=== PATIENT | male | born 1990 | race Caucasian/White ===

== ENCOUNTER 2021-05-05 15:26 | Inpatient (IN) | payer SELFPAY ==
--- OUTSIDE RECORDS SUMMARY | 2021-05-05 15:29 | XMS REPORT | Continuity of Care Document ---
:1990 Author Organization [facility] t Address [address] [place] [address] Care Team Providers Name Role Phone Mariah TORRES Primary Care Physician Unavailable Mariah TORRES Attending Clinician Unavailable TERRIE Attending Clinician Unavailable MD Norma FALCON Attending Clinician Unavailable ELADIA Attending Clinician Unavailable Mary Alice WYNNE Attending Clinician Unavailable Hui AGUIRRE Attending Clinician Unavailable Omid ORTEZ Attending Clinician Unavailable LOGAN Attending Clinician Unavailable Mary ASHTON Attending Clinician Unavailable WERO Attending Clinician Unavailable GIANCARLO Attending Clinician Unavailable AMADEO Attending Clinician Unavailable FORREST CUMMINS Attending Clinician Unavailable ALONSO Attending Clinician Unavailable Oswaldo DISLA Attending Clinician Unavailable SERGIO Attending Clinician Unavailable Mariah COBB Attending Clinician Unavailable Mary MCDANIEL Attending Clinician Unavailable LILLI Attending Clinician Unavailable OBINNA Attending Clinician Unavailable Norma ACHARYA Attending Clinician Unavailable JANETH CERNA Attending Clinician Unavailable EDISON Attending Clinician Unavailable SARA Attending Clinician Unavailable KIMMY Attending Clinician Unavailable DR VIJAY Attending Clinician Unavailable TERRIE Admitting Clinician Unavailable MD Norma FALCON Admitting Clinician Unavailable ZULY Admitting Clinician Unavailable DR VIJAY Admitting Clinician Unavailable Payers Payer Name Policy Type Policy Number Effective Date Expiration Date S ource Problems Condition Condition Condition Status Onset Resolution Last Treating Co mments Source Name Details Category Date Date Treatment Clinician Date Alcohol Alcohol Problem Active Univers use use [id number] ity of disorder disorder [place] [facility] Anxiety Anxiety Problem Active Univers and and [id number] [place] of [place] [facility] Allergies, Adverse Reactions, Alerts This patient has no known allergies or adverse reactions. Medications Ordered Filled Start Stop Current Ordering Indication Dosage Frequency Signature Comments Components Source Medication Medication Date Date Medication? Clinician (SIG) Name Name Gabapentin Gabapentin 2018-0 Yes SHAOJIE Q0.25D Take one [facility] 400 MG Oral 400 MG Oral 5-07 ONEAL M.D. capsule by ity of Capsule Capsule 08:58: mouth 4 [place] 26 [place] day ans Citalopram Citalopram Yes SHAOJIE Take 1 tab [facility] Hydrobromid Hydrobromid 2-15 ONEAL M.D. daily. ity of e 20 MG e 20 MG 00:00: [place] Oral Tablet Oral Tablet 00 P hysici ans TraZODone TraZODone Yes SHAOJIE TAKE 1/2 [facility] HCl - 150 HCl - 150 2-15 ONEAL M.D. TO 1 i ty of MG Oral MG Oral 00:00[place] Tablet 00 BEDTIME Physici PRN for ans insomnia Zolpidem Zolpidem Yes SHAOJIE TAKE 1/2 [facility] Tartrate 10 Tartrate 10 2-15 ONEAL M.D. OR 1 ity of MG Oral MG Oral 00:00[place] Table[place] Tablet 00 MOUTH Physici EVERY DAY ans AT BEDTIME Vital Signs Vital Name Observation Time Observation Value Comments Source Temperature 2017-07-07 98.4 [degF] Method: Oral [facility] 13:33:00 [place] [facility] Heart Rate 2017-07-07 93 /min Location: L [facility] :33:00 Brachial [place] [facility] Artery; Respiration Rate 2017-07-07 18 /min Quality: Normal Universi ty of 13:33:00 [place] [facility] BP Systolic 2017-07-07 144 mm[Hg] Location: [facility] :33:00 Position: [place] [facility] Sitting BP Diastolic 2017-07-07 92 mm[Hg] Location: [facility] 13:33:00 Position: [place] [facility] Sitting Height 2017-07-07 74 [in_us] [facility] 13:33:00 [place] [facility] Weight 2017-07-07 232 [lb_av] [facility] 13:33:00 [place] [facility] Body Mass Index 2017-07-07 29.79 kg/m2 University o f Calculated 13:33:00 [place] [facility] Procedures Procedure Date / Time Performed Performing Clinician Sour e [H] Drug Screen Urine 2017-07-07 00:00:00 [facility] (7 Drugs) Physicians History of no history [facility] of surgery Physicians Encounters Start End Encounter Admission Attending Care Care Encounter Source Date/Time Date/Time Type Type Clinicians Facility Department ID 2021-04-10 2021-04-10 Outpatient [facility] [id number] [place] 00:00:00 00:00:[address] 2021-03-31 2021-03-31 Outpatient BRIAN, [facility] [id number] [place] 00:00:00 00:00:00 [facility] 2021-03-23 2021-03-27 Inpatient TERRIE, [facility] [id number] [place] 00:00:00 00:00:00 TICO [address] 2021-01-24 2021-01-28 Inpatient ELADIA, [facility] [id number] [place] 18:12:49 13:50:00 [facility] 2020-12-15 2020-12-15 [facility] [id number] [place] 08:12:19 23:59:00 [facility] 2020-10-15 2020-10-15 Outpatient RICCI, [facility] [id number] [place] 00:00:00 [facility]:00:00 [facility] 2020-10-14 2020-10-14 Outpatient TIMOTHY, [facility] [id number] [place] 00:00:00 00:00:00 [facility] 2020-10-13 2020-10-13 Outpatient NEELIMA [facility] [id number] [facility] 13:41:18 14:49:53 ADONICA 2020-10-13 2020-10-13 Outpatient LOGAN [facility] [id number] [facility] 14:22:16 14:22:29 SCRALET 2020-10-03 2020-10-03 Emergency DAISHA, [facility] [id number] [place] 11:27:00 15:44:00 [facility] 2020-09-17 2020-09-18 Emergency WERO, [facility] [id number] [place] 22:15:00 04:15:00 [facility] 2020-09-17 2020-09-17 Outpatient SULY [facility] [id number] [place] 00:00:00 00:00:00 CUONG [facility] 2020-09-15 2020-09-15 [facility] [id number] [place] 00:00:00 00:00:00 [facility] 2020-09-09 2020-09-09 Emergency CLAYTON [facility] [id number] [place] 00:47:00 03:26:[address] [facility] 2020-09-01 2020-09-05 Outpatient JESSICATEO, [facility] [id number] [place] 22:15:00 15:28:00 [facility] 2020-09-04 2020-09-04 Outpatient ALALAYUMIKO, [facility] [id number] [place] 00:00:00 00:00:00 [facility] 2020-09-02 2020-09-02 Outpatient JAWAHIR, [facility] [id number] [place] 17:42:36 17:42:36 [facility] 2020-09-01 2020-09-01 Emergency [facility] [id number] [place] 15:33:08 15:33:08 [facility] 2020-08-27 2020-08-29 Outpatient [place] [id number] [place] 18:01:00 16:36:00 [facility] 2020-08-28 2020-08-28 Outpatient [place] [id number] [place] 03:30:57 03:30:57 [facility] 2020-08-28 2020-08-28 [facility] [id number] [place] 00:00:00 00:00:00 [facility] 2020-08-27 2020-08-27 Outpatient JORDYN, [facility] [id number] [place] 21:00:32 21:00:32 [facility] 2020-08-27 2020-08-27 [facility] [id number] [place] 19:53:25 19:53:25 [facility] 2020-08-27 2020-08-27 Outpatient LILLI, [facility] [id number] [place] 11:41:14 12:38:45 BRITTANI Tony 2020-08-25 2020-08-25 [facility] [id number] [place] 00:00:00 00:00:00 [facility] 2020-08-04 2020-08-04 Outpatient OBINNA, [facility] [id number] [place] 00:00:00 00:00:00 REESE [facility] 2020-07-31 2020-07-31 Outpatient AMADEO, [facility] [id number] [place] 00:00:00 00:00:00 [facility] 2020-07-22 2020-07-22 Outpatient YEBOAH, [facility] [id number] [place] 00:00:00 00:00:00 REESE [facility] 2020-07-21 2020-07-21 Outpatient YEBOAH, [facility] [id number] [place] 14:52:57 15:38:20 REESE [facility] 2020-07-21 2020-07-21 Outpatient YEBOAH, [facility] [id number] [place] 14:28:39 14:28:39 REESE [facility] 2020-07-01 2020-07-01 Outpatient MARCK, [facility] [id number] [place] 00:00:00 [facility]00[facility] 2019-11-30 2019-12-01 Emergency [facility] [id number] [place] 19:39:00 08:20:00 , ALICIA chery [facility] 2019-11-22 2019-11-22 Emergency E [facility] [id number] [place] 20:35:00 23:39:00 , ALICIA [facility]y [facility] 2019-11-17 2019-11-18 Emergency E EDISON, [facility] [id number] [place] 14:29:00 17:03:00 ZOYAMERErrol [facility]ined[facility] 2019-10-29 2019-10-31 Inpatient E SARA, [facility] [id number] [place] 01:45:00 14:40:00 ANTONIA [facility] 2017-08-11 2017-08-11 LORENZA Boles [id number] [facility] 12:30:00 12:30:00 t; MILAN ONEAL ity o f SHAOJIE, M.D. [place] [facility] 2017-07-07 2017-07-07 LORENZA Boles [id number] [facility] 13:00:00 13:00:00 t; MILAN ONEAL ity o f SHAOJIE, M.D. [place] [facility] 2017-05-13 2017-05-13 LORENZA Boles [id number] [facility] 13:00:00 13:00:00 t; MILAN ONEAL ity o f SHAOJIE, M.D. [place] [facility] 2017-04-28 2017-05-01 Inpatient [facility] [id number] [facility] [place] 15:58:00 16:15:00 [facility] Results Test Description Test Time Test Comments Results Result Comments Source SARS-CoV-2 (COVID-19) RNA [Presence] in Respiratory sp ecimen by 2021-03-23 18:56:16 GEOVANNI with probe detection Test Item Value Reference Range Interpretation Comme nts SARS-CoV-2 (COVID-19) RNA [Presence] in Respiratory Not detected No t-Detected specimen by GEOVANNI with probe detection (test code = 08950-7) Whether patient is employed in a healthcare setting (test code = 37378-1) Whether the patient has symptoms related to condition of interest (test code = 87544-4) Patient was hospitalized because of this condition (test code = 36087-3) Whether the patient was admitted to intensive care unit (ICU) for condition of interest (test code = 75310-6) Whether patient resides in a congregate care setting (test code = 13629-9) [QLH] CBC (INCLUDES DIFF/PLT)2017-07-07 14:00:01 Test Item Value Reference Range Interpretation Comments WBC (test code = WBC) 8.8 {K/CMM} 3.7-10.4 RBC (test code = RBC) 5.26 {M/CMM} 4.70-6.10 Hgb (test code = 94428-0) 14.6 g/dl 14.0-18.0 Hct (test code = 4544-3) 44.3 % 42.0-54.0 MCV (test code = MCV) 84.2 fL 80.0-94.0 MCH (test code = MCH) 27.7 pg 27.0-31.0 MCHC (test code = MCHC) 32.9 g/dl 32.0-36.0 RDW (test code = RDW) 14.4 % 11.5-14.5 Platelet (test code = 777-3) 288 {K/CMM} 133-450 Mean Platelet Volume (test code 9.3 fL 7.4-10.4 = Mean Platelet Volume) [facility]] [id number] 14:00:01 Test Item Value Reference Range Interpretation Comments Segmented Neutrophils (test code 49.9 % 45.0-75.0 = 52769-8) Monocytes # (test code = 44052-0) 0.8 {K/CMM} 0.0-0.8 Lymphocytes (test code = 38.4 % 20.0-40.0 Lymphocytes) Eosinophils # (test code = 0.2 {K/CMM} 0.0-0.5 77932-0) Basophils # (test code = 23665-2) 0.1 {K/CMM} 0.0-0.2 Segs-Bands # (test code = 4.4 {K/CMM} 1.5-8.1 32168-1) Lymphocytes # (test code = 3.4 {K/CMM} 1.0-5.5 38973-9) [facility]] CMP [id number] 14:00:01 Test Item Value Reference Range Interpretation Comments Sodium Level 140 {mEq/l} 135-145 (test code = Sodium Level) Potassium Level 4.4 {mEq/l} 3.5-5.1 (test code = Potassium Level) Chloride Level 108 {mEq/l} 95-109 (test code = Chloride Level) Carbon Dioxide 22 {mEq/l} 24-32 (test code = Carbon Dioxide) AGAP (test code = 14.4 {mEq/l} 10.0-20.0 AGAP) Glucose Lvl (test 79 mg/dl 70-99 Adult refe rence range code = Glucose values reflec t the Lvl) clinical guidel inesof the Citizen Of [place] Diabet es Association. Creatinine Lvl 1.00 mg/dl 0.50-1.40 (test code = Creatinine Lvl) Blood Urea 15 mg/dl 7-22 Nitrogen (test code = Blood Urea Nitrogen) BUN/Creatinine 15 6-25 Ratio (test code = BUN/Creatinine Ratio) Total Protein; 8.5 g/dl 6.4-8.4 Above High Threshold (test code = 90511-2) Albumin Lvl (test 4.2 g/dl 3.5-5.0 code = 1751-7) Globulin (test 4.3 g/dl 2.7-4.2 code = Globulin) A/G Ratio (test 1.0 0.7-1.6 code = A/G Ratio) Calcium Level 9.2 mg/dl 8.5-10.5 Total (test code = Calcium Level Total) ALT (test code = 37 u/l 0-65 1742-6) AST (test code = 26 u/l 0-37 1916-6) Alk Phos (test 86 u/l 39-136 code = 1783-0) Bili Total (test 0.3 mg/dl 0.2-1.3 code = 69647-2) eGFR (test code = 102 The eGFR i s calculated eGFR) {ML/MIN/1.7} using the CKD-E PI formula. In mos t young, healthyindividu als the eGFR will be >9 0 mL/min/1.73m2. The eGFR declines with a ge. AneGFR of 60-89 may be normal in some population s, particularly th e elderly, forwhom the CKD -EPI formula has not been extensively [place] idated. Use of the eGFR isnot recommended in the following populations:Ind ividuals with unstable c reatinine concentrations, including patient s and those with seri ous co-morbid conditions.Orin ents with extremes in mus ariel mass or diet.The leonardo a above are obtained fr om the National Kidney Disease Education Progr am(NKDEP) which additiona lly recommends that when the eGFR is used in patientswith ex tremes of body mass index for purposes of ameena g dosing, the eGFR should be multiplied by t he estimated BMI. [facility]] TSH, 3RD GENERATION W/REFLEX TO FT4 2017-07-07 14:00:01 Test Item Value Reference Range Interpretation Comments TSH (test code = 24013-8) 1.630 {uIU/ml} 0.360-3.740 [facility][H] Drug Screen Urine (7 Drugs)2017-07-07 14:00:01 Test Item Value Reference Range Interpretation Comments U Amph Scr (test code = Negative Negative U Amph Scr) Urine Barbiturate Negative Negative Screen (test code = Urine Barbiturate Screen) Urine Benzodiazepine Negative Negative Screen (test code = Urine Benzodiazepine Screen) Urine Cannabinoid Negative Negative Screen (test code = Urine Cannabinoid Screen) Urine Cocaine Screen Negative Negative (test code = Urine Cocaine Screen) Urine Opiate Screen Negative Negative (test code = Urine Opiate Screen) Urine Phencyclidine Negative Negative Screen (test code = Urine Phencyclidine Screen) Urine Drug Screen Note See Note Drugs reported as (test code = Urine Drug posi tive have not been Screen Note) confirmed by a secondmethod an d should be used for medical purpose s only. To orderconfirm ation, contact laboratory.no te: Below are cut-o ff concentrations for all urine drugs ofa camila performed in e laboratory. Trip e drugs listed in the t ablemay not be included in this panel.Desc ription C ut-off concentration-- ------- ------- ----Amp hetamine 1000 ng/mLBarbiturat es 200 ng/mLBenzodiaze pines 200 ng/mLCocaine metabolites 300 ng/mLOpiate s 300 ng/mLPhencyclid ine 25 ng/mLPropoxyphe ne 300 ng/mLMarijuana metabolites 50 ng/mLMethado ne 300 ng/mLUrine alco hol 20 mg/dL [facility]iciansSIC METABOLIC [id number] 05:46:00 Test Item Value Reference Range Interpretation Comments GLUCOSE (test code = 06D) 73 mg/dL 75-100 L SODIUM (test code = 01A) 142 mmol/L 136-145 POTASSIUM (test code = 01B) 3.7 mmol/L 3.6-5.1 CHLORIDE (test code = 04A) 108 mmol/L 98-107 H CO2 (test code = 02A) 28 mmol/L 22-32 ANION GAP (test code = ANG) 9.7 mmol/L BUN (test code = 05D) 8 mg/dL 7-18 CREATININE (test code = 03E) 1.0 mg/dL 0.7-1.3 BUN/CREA (test code = BCR) 8 12-20 L CALCIUM (test code = 09D) 8.1 mg/dL 8.3-9.5 L CBC (INCLUDES AUTOMATED DIFFERENTIAL)2017-05-01 05:40:00 Test Item Value Reference Range Interpretation Comments WBC (test code = WBC) 6.5 10\S\3/uL 4.5-11.0 RBC (test code = RBC) 4.03 10\S\6/uL 4.30-5.70 L HGB (test code = HBG) 11.1 g/dL 14.0-18.0 L HCT (test code = HCT) 33.4 % 35.0-46.0 L MCV (test code = MCV) 82.9 fL 80.0-94.0 MCH (test code = MCH) 27.5 pg 27.0-31.0 MCHC (test code = MCHC) 33.2 g/dL 32.0-36.0 RDW (test code = RDW) 13.6 % 11.5-14.5 PLT (test code = PLT) 248 10\S\3/uL 130-400 MPV (test code = MPV) 10.5 fL 9.4-12.4 NEUTROP # (test code = NE#) 2.1 10\S\3/uL 2.0-8.0 LYMPH # (test code = LY#) 3.3 10\S\3/uL 1.2-4.0 MONOCYTE # (test code = MO#) 0.5 10\S\3/uL 0.0-1.1 EOSINOPH # (test code = EO#) 0.6 10\S\3/uL 0.0-0.7 BASOPHIL # (test code = BA#) 0.1 10\S\3/uL 0.0-0.3 IG # (test code = IG#) 0.00 10\S\3/uL 0.00-0.06 NRBC # (test code = NRBC#) 0.00 10\S\3/uL 0.00-0.01 NEUTROPH % (test code = NE%) 31.9 % 35.0-73.0 L LYMPH % (test code = LY%) 50.2 % 20.0-55.0 MONO % (test code = MO%) 7.6 % 2.5-10.0 EOSINOPH % (test code = EO%) 9.1 % 0.0-5.0 H BASOPHIL % (test code = BA%) 1.2 % 0.0-2.0 IG % (test code = IG%) 0.0 % 0.0-0.8 NRBC% (test code = NRBC%) 0.0 % 0.0-0.2 MANDIFF (test code = MDIFF) NO NO RBC MORPH (test code = RBCMOR) NORMAL CBC (INCLUDES AUTOMATED DIFFERENTIAL)2017-04-30 05:30:00 Test Item Value Reference Range Interpretation Comments WBC (test code = WBC) 5.9 10\S\3/uL 4.5-11.0 RBC (test code = RBC) 3.91 10\S\6/uL 4.30-5.70 L HGB (test code = HBG) 10.8 g/dL 14.0-18.0 L HCT (test code = HCT) 33.4 % 35.0-46.0 L MCV (test code = MCV) 85.4 fL 80.0-94.0 MCH (test code = MCH) 27.6 pg 27.0-31.0 MCHC (test code = MCHC) 32.3 g/dL 32.0-36.0 RDW (test code = RDW) 14.0 % 11.5-14.5 PLT (test code = PLT) 236 10\S\3/uL 130-400 MPV (test code = MPV) 10.2 fL 9.4-12.4 NEUTROP # (test code = NE#) 2.1 10\S\3/uL 2.0-8.0 LYMPH # (test code = LY#) 2.9 10\S\3/uL 1.2-4.0 MONOCYTE # (test code = MO#) 0.4 10\S\3/uL 0.0-1.1 EOSINOPH # (test code = EO#) 0.5 10\S\3/uL 0.0-0.7 BASOPHIL # (test code = BA#) 0.1 10\S\3/uL 0.0-0.3 IG # (test code = IG#) 0.01 10\S\3/uL 0.00-0.06 NRBC # (test code = NRBC#) 0.00 10\S\3/uL 0.00-0.01 NEUTROPH % (test code = NE%) 35.1 % 35.0-73.0 LYMPH % (test code = LY%) 48.4 % 20.0-55.0 MONO % (test code = MO%) 7.1 % 2.5-10.0 EOSINOPH % (test code = EO%) 8.4 % 0.0-5.0 H BASOPHIL % (test code = BA%) 0.8 % 0.0-2.0 IG % (test code = IG%) 0.2 % 0.0-0.8 NRBC% (test code = NRBC%) 0.0 % 0.0-0.2 MANDIFF (test code = MDIFF) NO NO BASIC METABOLIC [id number] 05:29:00 Test Item Value Reference Range Interpretation Comments GLUCOSE (test code = 06D) 76 mg/dL 75-100 SODIUM (test code = 01A) 143 mmol/L 136-145 POTASSIUM (test code = 01B) 3.8 mmol/L 3.6-5.1 CHLORIDE (test code = 04A) 111 mmol/L 98-107 H CO2 (test code = 02A) 26 mmol/L 22-32 ANION GAP (test code = ANG) 9.8 mmol/L BUN (test code = 05D) 8 mg/dL 7-18 CREATININE (test code = 03E) 1.0 mg/dL 0.7-1.3 BUN/CREA (test code = BCR) 8 12-20 L CALCIUM (test code = 09D) 7.8 mg/dL 8.3-9.5 L BASIC METABOLIC [id number] 05:39:00 Test Item Value Reference Range Interpretation Comments GLUCOSE (test code = 06D) 77 mg/dL 75-100 SODIUM (test code = 01A) 144 mmol/L 136-145 POTASSIUM (test code = 01B) 4.0 mmol/L 3.6-5.1 CHLORIDE (test code = 04A) 113 mmol/L 98-107 H CO2 (test code = 02A) 25 mmol/L 22-32 ANION GAP (test code = ANG) 10.0 mmol/L BUN (test code = 05D) 8 mg/dL 7-18 CREATININE (test code = 03E) 0.9 mg/dL 0.7-1.3 BUN/CREA (test code = BCR) 9 12-20 L CALCIUM (test code = 09D) 7.7 mg/dL 8.3-9.5 L CBC (INCLUDES AUTOMATED DIFFERENTIAL)2017-04-29 05:33:00 Test Item Value Reference Range Interpretation Comments WBC (test code = WBC) 6.5 10\S\3/uL 4.5-11.0 RBC (test code = RBC) 4.11 10\S\6/uL 4.30-5.70 L HGB (test code = HBG) 11.4 g/dL 14.0-18.0 L HCT (test code = HCT) 34.7 % 35.0-46.0 L MCV (test code = MCV) 84.4 fL 80.0-94.0 MCH (test code = MCH) 27.7 pg 27.0-31.0 MCHC (test code = MCHC) 32.9 g/dL 32.0-36.0 RDW (test code = RDW) 14.0 % 11.5-14.5 PLT (test code = PLT) 254 10\S\3/uL 130-400 MPV (test code = MPV) 9.7 fL 9.4-12.4 NEUTROP # (test code = NE#) 3.6 10\S\3/uL 2.0-8.0 LYMPH # (test code = LY#) 2.0 10\S\3/uL 1.2-4.0 MONOCYTE # (test code = MO#) 0.7 10\S\3/uL 0.0-1.1 EOSINOPH # (test code = EO#) 0.2 10\S\3/uL 0.0-0.7 BASOPHIL # (test code = BA#) 0.0 10\S\3/uL 0.0-0.3 IG # (test code = IG#) 0.01 10\S\3/uL 0.00-0.06 NRBC # (test code = NRBC#) 0.00 10\S\3/uL 0.00-0.01 NEUTROPH % (test code = NE%) 54.7 % 35.0-73.0 LYMPH % (test code = LY%) 30.8 % 20.0-55.0 MONO % (test code = MO%) 10.0 % 2.5-10.0 EOSINOPH % (test code = EO%) 3.7 % 0.0-5.0 BASOPHIL % (test code = BA%) 0.6 % 0.0-2.0 IG % (test code = IG%) 0.2 % 0.0-0.8 NRBC% (test code = NRBC%) 0.0 % 0.0-0.2 MANDIFF (test code = MDIFF) NO NO RBC MORPH (test code = RBCMOR) NORMAL XR CHEST 1 VIEW [id number] 17:28:27STUDY: Chest radiographHISTORY: Central line placement.COMPARISON: NoneTECHNIQUE: Frontal view of the chest.LOCATION: [id number]:There is a right-sided internal jugular venous catheter projecting overtheSVC.The cardiac and mediastinal silhouette is unremarkable. There is no pleuraleffusion, pneumothorax or focal consolidation.No acute osseous abnormalities are identified.IMPRESSION:1. Right IJ catheter projects over SVC. No pneumothorax.DRUGS OF [id number] 15:29:00 Test Item Value Reference Range Interpretation Comments DRUG SCRN (test code URINE DRUG SCREEN = HDOA) This is an unconfirmed screening result and should not be used for non-medical purposes CANNABINOD (test code Negative NEGATIVE = 88C) AMPHETAMINE (test POSITIVE NEGATIVE A code = 84A) BENZODIAZP (test code Negative NEGATIVE = 86A) BARBITURAT (test code Negative NEGATIVE = 85A) OPIATES (test code = Negative NEGATIVE 92B) COCAINE (test code = Negative NEGATIVE 87A) PHENCYCLID (test code Negative NEGATIVE = 66A) METHADONE (test code Negative NEGATIVE = 64A) DOAH (test code = DOAH) *URINE DRUG SCREEN Cut-off values are as follows: Cannabinoids 50 ng/mL Cocaine 300 ng/mL Amphetamines 1000 ng/mL Phencyclidine 25 ng/mL Benzodiazepines 200 ng.mL Methadone 300 ng/mL Barbiturates 200 ng/mL Opiates 2000 ng/mL [id number] 15:23:00 Test Item Value Reference Range Interpretation Comments COLOR (test code = COLU) YELLOW YELLOW CLARITY (test code = CLA) CLEAR CLEAR GLUCOSE UR (test code = UA GLUCOSE) NEGATIVE NEGATIVE BILI UR (test code = BILE) NEGATIVE NEGATIVE KETONES UR (test code = HAYLEE) NEGATIVE NEGATIVE SP GRAVITY (test code = SPGR) 1.011 1.005-1.030 PH UR (test code = PH) 5.0 4.5-8.0 PROTEIN UR (test code = PU) NEGATIVE NEGATIVE UROBIL UR (test code = UROQ) 0.2 EU/dL 0.2-1.0 NITRITE UR (test code = NITRITE) NEGATIVE NEGATIVE BLOOD UR (test code = UA BLOOD) NEGATIVE NEGATIVE LEUK ES UR (test code = LEUK) NEGATIVE NEGATIVE [id number] 15:04:00 Test Item Value Reference Range Interpretation Comments ACETAMINPH (test code = 94M) <10.0 ug/mL 10.0-30.0 ALCOHOL BLOOD (ETOH)2017-04-28 15:01:00 Test Item Value Reference Range Interpretation Comments ETOH (test code = HALC) ETHANOL The result is to be used only for medical purposes ALCOHOL (test code = 98 mg/dL <=10 H 56A) COMPREHENSIVE METABOLIC [id number] 15:00:00 Test Item Value Reference Range Interpretation Comments GLUCOSE (test code = 06D) 79 mg/dL 75-100 SODIUM (test code = 01A) 139 mmol/L 136-145 POTASSIUM (test code = 01B) 3.8 mmol/L 3.6-5.1 CHLORIDE (test code = 04A) 105 mmol/L 98-107 CO2 (test code = 02A) 22 mmol/L 22-32 ANION GAP (test code = ANG) 15.8 mmol/L BUN (test code = 05D) 12 mg/dL 7-18 CREATININE (test code = 03E) 0.9 mg/dL 0.7-1.3 BUN/CREA (test code = BCR) 13 12-20 CALCIUM (test code = 09D) 8.4 mg/dL 8.3-9.5 BILI TOTAL (test code = 11A) 0.2 mg/dL 0.2-1.0 PROTEIN (test code = 07D) 7.5 g/dL 6.4-8.2 ALBUMIN (test code = 08D) 4.0 g/dL 3.5-4.8 GLOBULIN (test code = GLB) 3.5 g/dL 1.5-3.8 ALB/GLOB (test code = AGRR) 1.1 1.0-2.6 ALK PHOS (test code = 35A) 62 IU/L 42-121 AST (test code = 30A) 19 IU/L <=42 ALT (test code = 31A) 27 IU/L <=78 [id number] 14:51:00 Test Item Value Reference Range Interpretation Comments SALICYLATE (test code = 94B) <1.7 mg/dL 2.8-20.0 L CARDIAC [id number] 14:47:00 Test Item Value Reference Range Interpretation Comments TROPONIN I (test code = A84) <0.015 ng/mL 0.000-0.045 CKMB (test code = A49) 2.3 ng/mL <=3.6 CPK (test code = 32A) 130 IU/L 39-308 PRO TIME AND [id number] 14:45:00 Test Item Value Reference Range Interpretation Comments PT (test code = 12.1 s 9.8-13.6 TT) INR (test code = 1.1 INR) INRH (test code = SUGGESTED INRH) THERAPEUTIC RANGE FOR INR: 2.5 - 3.5 For Patients with Prosthetic Valves or Patients with recurrent Thromboembolic Events 2.0 - 3.0 For Most Other Applications PTT (test code = 33.8 s 20.2-38.0 PTT) PTTH (test code = To monitor the PTTH) effectiveness of heparin, we offer the Anti-Xa (Heparin Assay). It can be used for either unfractionated or LMW Heparin. Order Code is ANTI-XA CBC (INCLUDES AUTOMATED DIFFERENTIAL)2017-04-28 14:37:00 Test Item Value Reference Range Interpretation Comments WBC (test code = WBC) 5.6 10\S\3/uL 4.5-11.0 RBC (test code = RBC) 4.94 10\S\6/uL 4.30-5.70 HGB (test code = HBG) 13.7 g/dL 14.0-18.0 L HCT (test code = HCT) 40.5 % 35.0-46.0 MCV (test code = MCV) 82.0 fL 80.0-94.0 MCH (test code = MCH) 27.7 pg 27.0-31.0 MCHC (test code = MCHC) 33.8 g/dL 32.0-36.0 RDW (test code = RDW) 14.1 % 11.5-14.5 PLT (test code = PLT) 262 10\S\3/uL 130-400 MPV (test code = MPV) 9.9 fL 9.4-12.4 NEUTROP # (test code = NE#) 2.8 10\S\3/uL 2.0-8.0 LYMPH # (test code = LY#) 2.2 10\S\3/uL 1.2-4.0 MONOCYTE # (test code = MO#) 0.4 10\S\3/uL 0.0-1.1 EOSINOPH # (test code = EO#) 0.1 10\S\3/uL 0.0-0.7 BASOPHIL # (test code = BA#) 0.1 10\S\3/uL 0.0-0.3 IG # (test code = IG#) 0.01 10\S\3/uL 0.00-0.06 NRBC # (test code = NRBC#) 0.00 10\S\3/uL 0.00-0.01 NEUTROPH % (test code = NE%) 49.9 % 35.0-73.0 LYMPH % (test code = LY%) 39.7 % 20.0-55.0 MONO % (test code = MO%) 7.7 % 2.5-10.0 EOSINOPH % (test code = EO%) 1.6 % 0.0-5.0 BASOPHIL % (test code = BA%) 0.9 % 0.0-2.0 IG % (test code = IG%) 0.2 % 0.0-0.8 NRBC% (test code = NRBC%) 0.0 % 0.0-0.2 MANDIFF (test code = MDIFF) NO NO RBC MORPH (test code = RBCMOR) NORMAL
[2021-05-05] MEDS ORDERED: DIAZEPAM 10 MG/2 ML INJ SYRINGE ONE ×2 (16:23→17:35)
[2021-05-05] MEDS ORDERED: NA CHLORIDE 0.9% 1,000 ML ONE (16:23)
[2021-05-05 16:34] LABS: Basophils % 1.3 % (0-1.3); Lymphocytes % 39.8 % (15.3-44.8); MPV 7.3 fL (7.6-11.3); RBC Red Blood Cell Count 5.06 M/uL (4.33-5.43)
[2021-05-05 16:45] LABS: Potassium 3.2 mmol/L (3.5-5.1)
--- NOTE | 2021-05-05 17:32 | ER ---
Nurse's Notes [facility] Name: Filippo Salinas Age: 30 yrs Sex: Male : 1990 Arrival Date: 05/05/2021 Time: 15:26 Bed 5 Private MD: Diagnosis: Alcohol dependence with withdrawal delirium;Hypokalemia Presentation: 05/05 15:27 Chief complaint: EMS states: Sent from [facility] for ETOH withdrawal. Pt's last ss drink was over 24 hours ago. Reports that he typically drinks over a 24 case of beer daily. Staff members report that patient is having issues with memory loss and hallucinations. Pt c/o headache 11/29. Coronavirus screen: Client denies travel out of the [place] in the last 14 days. Ebola Screen: Patient denies exposure to infectious person. Patient denies travel to an Ebola-affected area in the 21 days before illness onset. Initial Sepsis Screen: Does the patient meet any 2 criteria? No. Patient's initial sepsis screen is negative. Does the patient have a suspected source of infection? No. Patient's initial sepsis screen is negative. Risk Assessment: Do you want to hurt yourself or someone else? Patient reports no desire to harm self or others. Onset of symptoms was May 05, 2021. 15:27 Method Of Arrival: Ambulatory ss 15:27 Acuity: CHRISTINE 3 ss Triage Assessment: 16:21 General: Appears. General: Appears Behavior is cooperative, anxious. Pain: Denies pain. mk Neuro: Level of Consciousness is awake, alert, obeys commands, Oriented to person, place, Quality Audit Representative are equal bilaterally tremors. Reports tremors and episodes of confusion. 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 Cardiovascular: Heart tones S1 S2 present Capillary refill < 3 seconds fingers toes Pulses are 2+ in right radial artery, right dorsalis pedis artery, left radial artery and left dorsalis pedis artery Rhythm is sinus rhythm. Respiratory: Airway is patent Respiratory effort is unlabored, Respiratory pattern is regular, symmetrical, Breath sounds are clear. Respiratory:. GI: Abdomen is flat, Abd is soft and non tender. : No deficits noted. Derm: Skin is intact, Skin temperature is warm. Musculoskeletal: Range of motion: intact in all extremities, tremors. Historical: - Allergies: 15:28 No Known Allergies; ss - PMHx: 15:28 ETOH abuse; ss - PSHx: 15:28 None; ss - Immunization history:: Client reports receiving the 2nd dose of the Covid vaccine. - Social history:: Smoking status: Reported history of juuling and/or vaping. - Family history:: not pertinent. - Hospitalizations: : No recent hospitalization is reported. Screenin:20 Abuse screen: Denies threats or abuse. Nutritional screening: No deficits noted. Tuberculosis screening: No symptoms or risk factors identified. Fall Risk No fall in past 12 months (0 pts). IV access (20 points). Ambulatory Aid- None/Bed Rest/Nurse Assist (0 pts). Gait- Weak (10 pts.). Mental Status- Overestimates/Forgets Limitations (15 pts.). Total Sanz Fall Scale indicates High Risk Score (45 or more points). Fall prevention measures have been instituted. Side Rails Up X 2 Placed Close to Nursing Station Frequent Obs/Assessments Occuring. Sepsis Screening: . Infection: Patient has no suspected or documented infection. Assessment: 16:37 General: seizure precautions - padded siderails, suction at bedside, AMBU bag at bedside. 16:37 Reassessment: No changes from previously documented assessment. Patient and/or family mk updated on plan of care and expected duration. Pain level reassessed. A\\T\\ox2 not to time or situation. 17:41 Reassessment: Patient appears in no apparent distress at this time. No changes from previously documented assessment. Patient and/or family updated on plan of care and expected duration. Pain level reassessed. Patient states feeling better. 18:41 Reassessment: No changes from previously documented assessment. Patient and/or family mk updated on plan of care and expected duration. Pain level reassessed. pt c/o CORDOVA, provider notified, received everbal from Dr Veronica to give 800mg Ibuprofen PO once reports feeling 'more with it' but still states he thinks he hears music in the background, will continue to monitor. Reassessment:. 20:12 General: CIWA- A for Alcohol Withdrawal Score. Do you feel sick to your stomach? " I do tw5 feel sick to my stomach, but I have not vomited in a couple of hours" +2 Tremor Patient asked to extend arms with fingers spread apart- Patient shows moderate tremors with arms extended +3, Paroxysmal sweats- Patient states " I have been clammy with cold sweats" +2, Anxiety Patient asked ' Do you feel nervous?' Patient states " I feel very anxious" +4, Agitation +1, Tactile disturbances- Patient states " My face and fingers feel tingly" +1, Auditory Distrubances " I am very jumpy to sounds, I heard the curtains laughing at me earlier" +3, Visual disturbances " I am seeing moving patterns" +4, Headache/fullness "My headache is pretty bad" +6, Orientation/clouding of sensorium 0. Score 24 points. Neuro: Level of Consciousness is awake, alert, obeys commands, Oriented to person, place, time, situation. Vital Signs: 15:27 Weight 102.06 kg; Height 6 ft. 2 in. (187.96 cm); Pain 7/10; ss 15:42 BP 165 / 94; Pulse 86; Resp 18; Temp 98.3(O); Pulse Ox 100% on R/A; ss 16:15 BP 161 / 116; Pulse 83; Resp 20; Pulse Ox 100% ; mk 16:30 BP 160 / 108; Pulse 79; Resp 20; Pulse Ox 97% on R/A; mk 17:15 BP 166 / 107; Pulse 83; Resp 20; Pulse Ox 99% ; mk 18:00 BP 179 / 116; Pulse 80; Resp 20; Pulse Ox 100% ; mk 18:45 BP 162 / 117; Pulse 85; Resp 20; Pulse Ox 98% on R/A; mk 20:20 BP 142 / 100; Pulse 89; Resp 18; Pulse Ox 99% on R/A; tw5 21:22 BP 154 / 104; Pulse 80; Resp 20; Pulse Ox 98% ; tw5 15:27 Body Mass Index 28.89 (102.06 kg, 187.96 cm) Eunice Coma Score: 15:42 Eye Response: spontaneous(4). Verbal Response: oriented(5). Motor Response: obeys commands(6). Total: 15. 17:15 Eye Response: spontaneous(4). Verbal Response: confused(4). Motor Response: obeys commands(6). Total: 14. 18:00 Eye Response: spontaneous(4). Verbal Response: confused(4). Motor Response: obeys mk commands(6). Total: 14. ED Course: 15:26 Patient arrived in ED. ss 15:28 Triage completed. ss 15:28 Arm band placed on left wrist. ss 15:46 Moises Veronica MD is Attending Physician. rn 16:19 Rose Benitez RN is Primary Nurse. vg1 16:21 Inserted saline lock: 22 gauge in right wrist, using aseptic technique. Blood collected.ss 16:23 Patient has correct armband on for positive identification. Placed in gown. Bed in low mh5 position. Call light in reach. Side rails up X2. Warm blanket given. secured entrance monitor on. Pulse ox on. NIBP on. 16:23 EKG done, by ED staff, reviewed by Moises Veronica MD. mh5 16:24 Basic Metabolic Panel Sent. 5 16:24 CBC with Diff Sent. mh5 16:24 ETOH Level Sent. mh5 16:36 No provider procedures requiring assistance completed. mk 16:37 EKG completed in triage. Results shown to MD. mk 17:31 Herbert Estevez is Hospitalizing Provider. rn 18:20 COVID swab sent to lab. mk 18:38 Urine Drug Screen Sent. mk 19:13 Primary Nurse role handed off by Rose Benitez, NIDA tw5 19:13 Angella Turner is Primary Nurse. tw5 20:20 SARS-COV-2 RT PCR (Document "Date of Onset" if Symptomatic) Sent. tw5 21:21 Patient admitted, IV remains in place. tw5 Administered Medications: 16:25 Drug: Valium (diazepam) 5 mg Route: IVP; Site: right wrist; vg1 17:41 Follow up: Response: No adverse reaction; No change in condition vg1 19:12 Follow up: Response: No adverse reaction mk 16:25 Drug: NS 0.9% 1000 ml Route: IV; Rate: 1000 ml; Site: right wrist; vg1 17:41 Follow up: IV Status: Completed infusion; IV Intake: 1000ml vg1 19:11 Follow up: Response: No adverse reaction mk 19:12 Follow up: Response: No adverse reaction; IV Status: Completed infusion; IV Intake: mk 1000ml 17:37 Drug: Potassium Chloride 40 mEq Route: PO; vg1 18:54 Follow up: Response: No adverse reaction mk 19:11 Follow up: Response: No adverse reaction mk 17:39 Drug: Valium (diazepam) 5 mg Route: IVP; Site: right wrist; vg1 18:54 Follow up: Response: No adverse reaction; No change in condition mk 19:11 Follow up: Response: No adverse reaction mk 18:54 Drug: Ibuprofen 800 mg Route: PO; mk 20:20 Follow up: Response: No adverse reaction tw5 20:11 Drug: Nicotine Patch 21 mg/24 hr 1 patches {Note: right upper arm.} Route: Transdermal; tw5 Site: affected area; Intake: 17:41 IV: 1000ml; Total: 1000ml. vg1 19:12 IV: 1000ml; Total: 2000ml. Outcome: 17:31 Decision to Hospitalize by Provider. rn 20:38 Admitted to Med/surg room 212, Report called to Spoke to Loly, she stated she has tw5 not assigned a nurse to this patient yet, to call back in 15 min. 21:21 Condition: stable tw5 21:21 Admitted to Med/surg Report called to called report to BRANDY tw 21:32 Patient left the ED. tw5 Signatures: Moises Veronica MD MD rn Smirch, Shelby, RN RN ss Martinez, Maria 5 Rose Benitez RN RN vg1 Angella Turner tw5 Gloria Lewis RN RN Corrections: (The following items were deleted from the chart) 15:42 15:27 Acuity: CHRISTINE 2 ss ss 18:43 17:41 Reassessment: Patient appears in no apparent distress at this time. No changes mk from previously documented assessment. Patient and/or family updated on plan of care and expected duration. Pain level reassessed. Patient is alert, oriented x 3, equal unlabored respirations, skin warm/dry/pink. vg1
--- NOTE | 2021-05-05 17:32 | EDPHYS ---
Physician Documentation [facility] Name: Filippo Salinas Age: 30 yrs Sex: Male : 1990 Arrival Date: 05/05/2021 Time: 15:26 Bed 5 Private MD: ED Physician Moises Veronica HPI: 05/05 16:14 This 30 yrs old Male presents to ER via Ambulatory with complaints of Alcohol rn Withdrawal. 16:14 Patient brought from [facility] for further evaluation. He signed in for detox from rn alcohol, last drink was yesterday, normally drinks 24 beers plus a day. No fever, no head injury, no focal neurological deficits. Denies chest pain. Reports feels like he is withdrawing and feels anxious. Denies any hallucinations.. Onset: The symptoms/episode began/occurred yesterday. Severity of symptoms: At their worst the symptoms were moderate in the emergency department the symptoms have improved. The patient has experienced similar episodes in the past. The patient has been recently seen by a physician:. Historical: - Allergies: 15:28 No Known Allergies; ss - PMHx: 15:28 ETOH abuse; ss - PSHx: 15:28 None; ss - Immunization history:: Client reports receiving the 2nd dose of the Covid vaccine. - Social history:: Smoking status: Reported history of juuling and/or vaping. - Family history:: not pertinent. - Hospitalizations: : No recent hospitalization is reported. ROS: 16:14 Constitutional: Negative for fever, chills, and weight loss, Eyes: Negative for injury, rn pain, redness, and discharge, Neck: Negative for injury, pain, and swelling, Cardiovascular: Negative for chest pain, palpitations, and edema, Respiratory: Negative for shortness of breath, cough, wheezing, and pleuritic chest pain, Abdomen/GI: Negative for abdominal pain, vomiting, diarrhea, and constipation, Back: Negative for injury and pain, : Negative for injury, bleeding, discharge, and swelling, MS/Extremity: Negative for injury and deformity, Skin: Negative for injury, rash, and discoloration, Neuro: Negative for headache, numbness, tingling, and seizure. Exam: 16:14 Constitutional: This is a well developed, well nourished patient who is awake, alert, rn and in no acute distress. Sitting in chair watching TV Head/Face: Normocephalic, atraumatic. Eyes: Periorbital areas with no swelling, redness, or edema. Cardiovascular: Regular rate and rhythm. No pulse deficits. Respiratory: No increased work of breathing, no retractions or nasal flaring. Abdomen/GI: Soft, non-tender Skin: Warm, dry MS/ Extremity: Pulses equal, no cyanosis. Neuro: Awake and alert, GCS 15, oriented to person, place, time, and situation. Cranial nerves II-XII grossly intact. Motor strength 5/5 in all extremities. Sensory grossly intact. Cerebellar exam normal. Mild extremity tremor and tongue fasciculations Vital Signs: 15:27 Weight 102.06 kg; Height 6 ft. 2 in. (187.96 cm); Pain 7/10; ss 15:42 BP 165 / 94; Pulse 86; Resp 18; Temp 98.3(O); Pulse Ox 100% on R/A; ss 16:15 BP 161 / 116; Pulse 83; Resp 20; Pulse Ox 100% ; mk 16:30 BP 160 / 108; Pulse 79; Resp 20; Pulse Ox 97% on R/A; mk 17:15 BP 166 / 107; Pulse 83; Resp 20; Pulse Ox 99% ; mk 18:00 BP 179 / 116; Pulse 80; Resp 20; Pulse Ox 100% ; mk 18:45 BP 162 / 117; Pulse 85; Resp 20; Pulse Ox 98% on R/A; mk 20:20 BP 142 / 100; Pulse 89; Resp 18; Pulse Ox 99% on R/A; tw5 21:22 BP 154 / 104; Pulse 80; Resp 20; Pulse Ox 98% ; tw5 15:27 Body Mass Index 28.89 (102.06 kg, 187.96 cm) Eunice Coma Score: 15:42 Eye Response: spontaneous(4). Verbal Response: oriented(5). Motor Response: obeys commands(6). Total: 15. 17:15 Eye Response: spontaneous(4). Verbal Response: confused(4). Motor Response: obeys commands(6). Total: 14. 18:00 Eye Response: spontaneous(4). Verbal Response: confused(4). Motor Response: obeys mk commands(6). Total: 14. MDM: 15:46 Patient medically screened. rn 17:27 Differential Diagnosis ETOH withdrawal, Delirium tremens. Data reviewed: vital signs, rn nurses notes, lab test result(s), EKG, and as a result, I will admit patient. Counseling: I had a detailed discussion with the patient and/or guardian regarding: the historical points, exam findings, and any diagnostic results supporting the discharge/admit diagnosis, lab results, the need for further work-up and treatment in the hospital. Response to treatment: the patient's symptoms have mildly improved after treatment, and as a result, I will admit patient. Admission orders: after a detailed discussion of the patient's condition and case, the admit orders are written by me. ED course: Pt with slight improvement but now is hallucinating and altered. No seizure activity. Mild hypokalemia. BP 166/107. Agitated and hallucinating, will admit to Daniela Estevez. Called, no answer. . 05/05 15:59 Order name: CBC with Diff; Complete Time: 16:54 05/05 15:59 Order name: Basic Metabolic Panel; Complete Time: 16:54 05/05 15:59 Order name: ETOH Level; Complete Time: 16:54 05/05 17:48 Order name: Urine Drug Screen 05/05 17:48 Order name: Urine Drug Screen; Complete Time: 19:05 [facility] 05/05 18:06 Order name: SARS-COV-2 RT PCR (Document "Date of Onset" if Symptomatic) 05/05 15:59 Order name: EKG; Complete Time: 15:59 05/05 18:07 Order name: SARS-COV-2 RT PCR [facility] 05/05 15:59 Order name: IV Start; Complete Time: 16:20 rn 14 15:59 Order name: EKG - Nurse/Tech; Complete Time: 16:23 rn Administered Medications: 16:25 Drug: Valium (diazepam) 5 mg Route: IVP; Site: right wrist; vg1 17:41 Follow up: Response: No adverse reaction; No change in condition vg1 19:12 Follow up: Response: No adverse reaction mk 16:25 Drug: NS 0.9% 1000 ml Route: IV; Rate: 1000 ml; Site: right wrist; vg1 17:41 Follow up: IV Status: Completed infusion; IV Intake: 1000ml vg1 19:11 Follow up: Response: No adverse reaction mk 19:12 Follow up: Response: No adverse reaction; IV Status: Completed infusion; IV Intake: mk 1000ml 17:37 Drug: Potassium Chloride 40 mEq Route: PO; vg1 18:54 Follow up: Response: No adverse reaction mk 19:11 Follow up: Response: No adverse reaction mk 17:39 Drug: Valium (diazepam) 5 mg Route: IVP; Site: right wrist; vg1 18:54 Follow up: Response: No adverse reaction; No change in condition mk 19:11 Follow up: Response: No adverse reaction mk 18:54 Drug: Ibuprofen 800 mg Route: PO; mk 20:20 Follow up: Response: No adverse reaction tw5 20:11 Drug: Nicotine Patch 21 mg/24 hr 1 patches {Note: right upper arm.} Route: Transdermal; tw5 Site: affected area; Disposition Summary: 05/05/21 17:31 Hospitalization Ordered Hospitalization Status: Inpatient Admission rn Provider: Herbert Estevez rn Location: Telemetry/MedSur (Inpatient) rn Condition: Stable rn Problem: new rn Symptoms: have improved rn Bed/Room Type: Standard rn Room Assignment: 212(05/05/21 20:33) cg Diagnosis - Alcohol dependence with withdrawal delirium rn - Hypokalemia rn Forms: - Medication Reconciliation Form rn - SBAR form rn Signatures: Dispatcher [employer] Moises Augustine MD MD rn Smirch, Shelby, RN RN Taylor Roe RN RN Rose Ordoñez RN RN vg1 Mikie Hartmann PA PA ej Wood, Tiffany tw5 Gloria Lewis RN NIDA Corrections: (The following items were deleted from the chart) 20:33 17:31 rn cg
[2021-05-05] MEDS ORDERED: POTASSIUM CL SA 10 MEQ TAB PO ONE (17:35)
[2021-05-05 18:20] LABS: Barbiturates NEGATIVE (NEGATIVE); Benzodiazepines POSITIVE (NEGATIVE); Cocaine NEGATIVE (NEGATIVE); METHAMPHETAM NEGATIVE (NEGATIVE); Methadone NEGATIVE (NEGATIVE); Opiates NEGATIVE (NEGATIVE); Phencyclidine NEGATIVE (NEGATIVE); THC Cannibis NEGATIVE (NEGATIVE)
[2021-05-05] MEDS ORDERED: IBUPROFEN 400 MG TAB ONE (18:50)
--- NOTE | 2021-05-05 19:54 | P.HP ---
Certification for Inpatient Patient admitted to: Inpatient With expected LOS: >2 Midnights Patient will require the following post-hospital care: None Practitioner: I am a practitioner with admitting privileges, knowledge of patient current condition, hospital course, and medical plan of care. Services: Services provided to patient in accordance with Admission requirements found in Title 42 Section 412.3 of the Code of Federal Regulations Patient History Date of Service: 05/05/21 Reason for admission: alcohol withdrawal History of Present Illness: Mr. Salinas is a 30 yo M with alcohol use disorder who was brought in from his detox facility for AMS. His last drink was yesterday morning. He admitted himself to a detox facility yesterday. He has been taking librium and ativan at the facility. This morning he woke up and couldn't remember where he was. He was hearing voices, laughter and music that was not there. He also had worsening nausea and tremors. The facility called EMS and he was brought to the ED. Over the past few months, he has had seizures from withdrawal. - Past Medical/Surgical History Has patient received pneumonia vaccine in the past: No Diabetic: No -: alcohol use disorder Past Surgical History: Patient denies surgical history - Family History Family History: Reviewed- Non-Contributory - Social History Smoking Status: Current every day smoker Alcohol use: Yes CD- Drugs: No Caffeine use: No Place of Residence: Home Review of Systems 10-point ROS is otherwise unremarkable General: Unremarkable Eyes: Unremarkable ENT: Unremarkable Respiratory: Unremarkable Cardiovascular: Unremarkable Gastrointestinal: Nausea Genitourinary: Unremarkable Musculoskeletal: Unremarkable Integumentary: Unremarkable Neurological: Confusion Lymphatics: Unremarkable Physical Examination - Physical Exam General: Alert, In no apparent distress HEENT: Atraumatic, PERRLA, Mucous membr. moist/pink, EOMI, Sclerae nonicteric Neck: Supple, 2+ carotid pulse no bruit, No LAD, Without JVD or thyroid abnormality Respiratory: Clear to auscultation bilaterally, Normal air movement Cardiovascular: Regular rate/rhythm, Normal S1 S2 Gastrointestinal: Normal bowel sounds, No tenderness Musculoskeletal: No tenderness Integumentary: No rashes Neurological: Normal speech, Normal strength at 5/5 x4 extr, Normal tone, Normal affect, Other (tremors ) Lymphatics: No axilla or inguinal lymphadenopathy - Studies Laboratory Data (last 24 hrs) 05/05/21 16:18: Sodium 138, Potassium 3.2 L, BUN 9, Creatinine 1.20, Glucose 96 05/05/21 16:18: WBC 5.10, Hgb 14.9, Hct 44.0, Plt Count 171 Assessment and Plan - Problems (Diagnosis) (1) Alcohol withdrawal Current Visit: Yes Status: Acute Qualifiers: Complication of substance-induced condition: with unspecified complication Qualified Code(s): F10.239 - Alcohol dependence with withdrawal, unspecified (2) Tobacco use disorder Current Visit: Yes Status: Chronic - Plan CIWA protocol, seizure precautions ativan IV PRN continue IV banana bag IV hydralazine PRN nicotine patch daily on tele, O2 as needed DVT ppx Discharge Plan: Home Plan to discharge in: 48 Hours - Advance Directives Does patient have a Living Will: No Does patient have a Durable POA for Healthcare: No - Code Status/Comfort Care Code Status Assessed: Yes (full code ) Critical Care: No Time Spent Managing Pts Care (In Minutes): 70
[2021-05-05] MEDS ORDERED: NICOTINE 21 MG/PAT TD ONE (20:07)
[2021-05-05] MEDS ORDERED: ONDANSETRON 4 MG/2 ML VIAL IV PRN (21:54)
[2021-05-05] MEDS: ZOLPIDEM TARTRATE 10 MG TABLET PO PRN (22:45)
[2021-05-05] MEDS: LORazepam 2 MG/ML VIAL IV PRN (22:46)
[2021-05-05 23:41] VITALS: BMI 28.8
[2021-05-06] MEDS: LORazepam 2 MG/ML VIAL IV PRN ×6 (03:34→21:08)
[2021-05-06 06:37] LABS: Absolute Lymphocytes (CBC) 1.9 K/uL (0.7-4.9); Basophils % 2.4 % (0-1.3); Hematocrit 40.8 % (39.6-49.0); Lymphocytes % 52.6 % (15.3-44.8); MPV 7.7 fL (7.6-11.3); RBC Red Blood Cell Count 4.64 M/uL (4.33-5.43)
[2021-05-06 07:11] LABS: ALT/SGPT 125 U/L (12-78); AST/SGOT 124 U/L (15-37); Albumin 3.2 g/dL (3.4-5.0); Alkaline Phosphatase 64 U/L (45-117); BUN Blood Urea Nitrogen 6 mg/dL (7-18); Bicarbonate 24 mmol/L (21-32); Bilirubin Total 0.6 mg/dL (0.2-1.0); Glucose Level 86 mg/dL (74-106); HDL Cholesterol 67 mg/dL (40-60); LDL Cholesterol, Calculated 63 (<130); Magnesium 2.1 mg/dL (1.8-2.4); Phosphorus 3.5 mg/dL (2.5-4.9); Potassium 3.5 mmol/L (3.5-5.1); Protein, Total 6.9 g/dL (6.4-8.2); Sodium Level 140 mmol/L (136-145)
--- NOTE | 2021-05-06 07:50 | EKG ---
Test Date: 2021-05-05 Test Time: 16:31:17 As400 Administrator: LOUANN MEASUREMENT RESULTS: Intervals: Rate: 96 VT: QRSD: 72 QT: 406 QTc: 512 [place]: P: VT: QRS: 18 T: 31 INTERPRETIVE STATEMENTS: Atrial fibrillation with premature ventricular or aberrantly conducted complexes Prolonged QT Abnormal ECG Compared to ECG 05/05/2021 16:30:48 No significant changes Electronically Signed On 05-06-21 07:48:07 DRAWER IN JACQUARD LOOM by Anirudh Cifuentes
[2021-05-06] MEDS ORDERED: THIAMINE 200 MG/2 ML INJ ONE (08:02)
[2021-05-06] MEDS ORDERED: NA CHLORIDE 0.9% 0 ML ONE (08:02)
[2021-05-06 08:21] LABS: Blood Morphology Comment NOT SEEN (NOT SEEN); Platelet Estimate ADEQ
[2021-05-06] MEDS ORDERED: HALOPERIDOL LACT 5 MG/ML INJ IM PRN (08:35)
[2021-05-06] MEDS ORDERED: FLUMAZENIL 0.1 MG/ML (5 mL VIAL) IV PRN (08:35)
[2021-05-06] MEDS ORDERED: PNEUMOCOCCAL VACCINE 0.5 ML IMVAC ONE (09:00)
[2021-05-06] MEDS: NICOTINE 21 MG/PAT TD SCH (09:03)
[2021-05-06] MEDS: ENOXAPARIN 40 MG/0.4 ML SQ SCH (09:03)
[2021-05-06] MEDS: FOLIC ACID 1 MG, MULTIVITAMINS INJ 10 ML, THIAMINE HCL 100 MG in NA CHLORIDE 0.9% 1,000 ML IV SCH (09:04)
[2021-05-06] MEDS: POTASSIUM CL SA 10 MEQ TAB PO SCH ×2 (09:04→20:03)
[2021-05-06] MEDS ORDERED: chlordiazePOXIDE HCl 5 MG CAP PO SCH (12:00)
--- NOTE | 2021-05-06 13:48 | P.PN ---
Subjective Date of Service: 05/06/21 Chief Complaint: alcohol withdrawal Patient reports hand tremors. He states the hallucinations have stopped. He remained awake and alert. Denies any nausea vomiting. Physical Examination - Vital Signs Temperature: 97.9 F Blood Pressure: 148/98 Pulse: 66 Respirations: 22 Pulse Ox (%): 97 - Physical Exam General: Alert, In no apparent distress, Oriented x3 HEENT: Mucous membr. moist/pink, Sclerae nonicteric Neck: Supple, JVD not distended Respiratory: Clear to auscultation bilaterally, Normal air movement Cardiovascular: No edema, Regular rate/rhythm, Normal S1 S2 Gastrointestinal: Soft and benign, Non-distended, No tenderness Musculoskeletal: No swelling, No tenderness Integumentary: No rashes, No erythema Neurological: Normal strength at 5/5 x4 extr - Studies Laboratory Data (last 24 hrs) 05/05/21 16:18: Sodium 138, Potassium 3.2 L, BUN 9, Creatinine 1.20, Glucose 96 05/05/21 16:18: WBC 5.10, Hgb 14.9, Hct 44.0, Plt Count 171 Assessment And Plan - Current Problems (Diagnosis) (1) Hallucinosis, alcohol withdrawal Current Visit: Yes Status: Acute (2) Alcohol withdrawal Current Visit: Yes Status: Acute Qualifiers: Complication of substance-induced condition: with unspecified complication Qualified Code(s): F10.239 - Alcohol dependence with withdrawal, unspecified (3) Tobacco use disorder Current Visit: Yes Status: Chronic (4) Elevated blood pressure reading Current Visit: Yes Status: Acute - Plan Continue treatment for alcohol withdrawal per [facility] protocol. Patient being treated with scheduled oral Librium and IV Ativan as needed. Monitor and optimize electrolytes. Oral folic acid and thiamine. Haldol as needed for hallucination. Start low-dose amlodipine for elevated blood pressure.
[2021-05-06] MEDS: AMLODIPINE 5 MG TAB PO SCH (15:28)
[2021-05-06] MEDS: chlordiazePOXIDE HCl 25 MG CAP PO SCH ×2 (17:37→23:10)
[2021-05-06] MEDS: ZOLPIDEM TARTRATE 10 MG TABLET PO PRN (20:54)
[2021-05-07] MEDS: LORazepam 2 MG/ML VIAL IV PRN ×8 (00:21→20:16)
[2021-05-07] MEDS ORDERED: MORPHINE 2 MG/ML SYR IV ONE (02:25)
[2021-05-07] MEDS: HYDRALAZINE HCL 20 MG/ML VIAL IV PRN ×3 (02:33→15:05)
[2021-05-07] MEDS: ACETAMINOPHEN 500 MG TAB PO PRN ×3 (02:34→22:30)
[2021-05-07] MEDS: chlordiazePOXIDE HCl 25 MG CAP PO SCH ×3 (05:32→17:58)
[2021-05-07 05:41] LABS: Basophils % 0.2 % (0-1.3); Hematocrit 41.7 % (39.6-49.0); Lymphocytes % 42.3 % (15.3-44.8); MPV 7.3 fL (7.6-11.3); RBC Red Blood Cell Count 4.77 M/uL (4.33-5.43)
[2021-05-07 06:00] LABS: ALT/SGPT 147 U/L (12-78); AST/SGOT 144 U/L (15-37); Albumin 3.4 g/dL (3.4-5.0); Alkaline Phosphatase 71 U/L (45-117); BUN Blood Urea Nitrogen 5 mg/dL (7-18); Bicarbonate 23 mmol/L (21-32); Bilirubin Total 0.5 mg/dL (0.2-1.0); Glucose Level 99 mg/dL (74-106); Magnesium 2.3 mg/dL (1.8-2.4); Phosphorus 2.6 mg/dL (2.5-4.9); Potassium 3.5 mmol/L (3.5-5.1); Protein, Total 7.3 g/dL (6.4-8.2); Sodium Level 140 mmol/L (136-145)
[2021-05-07] MEDS: AMLODIPINE 5 MG TAB PO SCH (08:08)
[2021-05-07] MEDS: ENOXAPARIN 40 MG/0.4 ML SQ SCH (08:08)
[2021-05-07] MEDS: NICOTINE 21 MG/PAT TD SCH (08:08)
[2021-05-07] MEDS: POTASSIUM CL SA 10 MEQ TAB PO SCH ×2 (08:09→20:16)
[2021-05-07] MEDS: FOLIC ACID 1 MG, MULTIVITAMINS INJ 10 ML, THIAMINE HCL 100 MG in NA CHLORIDE 0.9% 1,000 ML IV SCH (08:52)
[2021-05-07] MEDS ORDERED: THIAMINE HCL 100 MG TABLET PO SCH (09:00)
[2021-05-07] MEDS ORDERED: FOLIC ACID 1 MG TABLET PO SCH (09:00)
--- NOTE | 2021-05-07 09:14 | P.PN ---
Subjective Date of Service: 05/07/21 Chief Complaint: alcohol withdrawal Patient reports hand tremors and intermittent visual hallucinations He is also complaining of headache. Blood pressure is elevated Denies any nausea vomiting. Physical Examination - Vital Signs Temperature: 97.6 F Blood Pressure: 162/110 Pulse: 84 Respirations: 16 Pulse Ox (%): 94 - Physical Exam General: Alert, In no apparent distress HEENT: Mucous membr. moist/pink Neck: JVD not distended Respiratory: Clear to auscultation bilaterally, Normal air movement Cardiovascular: No edema, Regular rate/rhythm, Normal S1 S2, No murmurs Gastrointestinal: Normal bowel sounds, Soft and benign, Non-distended, No tenderness Musculoskeletal: No swelling Integumentary: No rashes Neurological: Normal strength at 5/5 x4 extr Assessment And Plan - Current Problems (Diagnosis) (1) Hallucinosis, alcohol withdrawal Current Visit: Yes Status: Acute (2) Alcohol withdrawal Current Visit: Yes Status: Acute Qualifiers: Complication of substance-induced condition: with unspecified complication Qualified Code(s): F10.239 - Alcohol dependence with withdrawal, unspecified (3) Tobacco use disorder Current Visit: Yes Status: Chronic (4) Elevated blood pressure reading Current Visit: Yes Status: Acute - Plan Continue treatment for alcohol withdrawal per [facility] protocol. Continue oral Librium and IV Ativan as needed. Monitor and optimize electrolytes. Oral folic acid and thiamine. Haldol as needed for hallucination. Amlodipine and as needed hydralazine for blood pressure control. Headache likely related to elevated blood pressure and alcohol withdrawal. It showed improved with blood pressure control.
[2021-05-07] MEDS ORDERED: HYDROCODONE/APAP 5/325 MG TAB PO ONE (15:23)
[2021-05-07] MEDS: ZOLPIDEM TARTRATE 10 MG TABLET PO PRN (20:16)
[2021-05-08] MEDS: chlordiazePOXIDE HCl 25 MG CAP PO SCH ×3 (00:01→12:19)
[2021-05-08] MEDS: LORazepam 2 MG/ML VIAL IV PRN ×2 (03:15→09:50)
[2021-05-08 06:19] LABS: Absolute Lymphocytes (CBC) 2.1 K/uL (0.7-4.9); Basophils % 0.1 % (0-1.3); Hematocrit 40.1 % (39.6-49.0); Lymphocytes % 39.8 % (15.3-44.8); MPV 7.9 fL (7.6-11.3); RBC Red Blood Cell Count 4.48 M/uL (4.33-5.43)
[2021-05-08 06:40] LABS: Albumin 3.2 g/dL (3.4-5.0); Bilirubin Total 0.3 mg/dL (0.2-1.0); Magnesium 2.5 mg/dL (1.8-2.4); Phosphorus 4.2 mg/dL (2.5-4.9); Potassium 3.9 mmol/L (3.5-5.1)
[2021-05-08] MEDS ORDERED: THIAMINE HCL 100 MG TABLET PO SCH (09:00)
[2021-05-08] MEDS ORDERED: FOLIC ACID 1 MG TABLET PO SCH (09:00)
[2021-05-08] MEDS: POTASSIUM CL SA 10 MEQ TAB PO SCH (09:45)
[2021-05-08] MEDS: FOLIC ACID 1 MG, MULTIVITAMINS INJ 10 ML, THIAMINE HCL 100 MG in NA CHLORIDE 0.9% 1,000 ML IV SCH (09:45)
[2021-05-08] MEDS: ENOXAPARIN 40 MG/0.4 ML SQ SCH (09:45)
[2021-05-08] MEDS: NICOTINE 21 MG/PAT TD SCH (09:45)
[2021-05-08] MEDS: AMLODIPINE 5 MG TAB PO SCH (09:46)
[2021-05-08 10:16] VITALS: O2SAT 99
--- NOTE | 2021-05-08 11:51 | P.DS ---
Admission Date: 05/05/21 Discharge Date: 05/08/21 Disposition: TRANSFR TO OTHER-PSY/CD/REHAB Discharge Condition: FAIR Reason for Admission: alcohol withdrawal - Problems (1) Hallucinosis, alcohol withdrawal Current Visit: Yes Status: Acute (2) Alcohol withdrawal Current Visit: Yes Status: Acute Qualifiers: Complication of substance-induced condition: with unspecified complication Qualified Code(s): F10.239 - Alcohol dependence with withdrawal, unspecified (3) Tobacco use disorder Current Visit: Yes Status: Chronic (4) Elevated blood pressure reading Current Visit: Yes Status: Acute Brief History of Present Illness: Mr. Salinas is a 30 yo M with alcohol use disorder who was brought in from his detox facility for AMS. He admitted himself to a detox facility the day before admission, same day for last drink. He was being treated with librium and ativan at the facility. Patient started experiencing auditory and visual hallucinations He also reported nausea and tremors. The facility called EMS and he was brought to the ED. He reported prior seizures from alcohol withdrawal. Hospital Course: Patient admitted to the medical floor and treated for alcohol withdrawal with scheduled oral Librium and IV Ativan as needed. He did not experience any seiz ures. He had intermittent hallucinations which was managed with IM Haldol. Other symptoms included headache which was managed with Tylenol and [place]. Patient has currently stabilized. Alcohol withdrawal symptoms are under control, he is ambulatory, tolerating diet. Patient has clinically stabilized and he is transferred to the detox facility to continue detox per his request. He is prescribed gabapentin at bedtime for alcohol craving. His blood pressure was elevated and this was managed with low-dose amlodipine. Patient is prescribed amlodipine to continue treatment for hypertension. Vital Signs/Physical Exam: Temp Pulse Resp BP Pulse Ox 97.0 F 99 H 16 137/84 100 05/08/21 08:00 05/08/21 08:00 05/08/21 08:00 05/08/21 08:00 05/08/21 08:00 General: Alert, In no apparent distress, Oriented x3 HEENT: PERRLA, Mucous membr. moist/pink, Sclerae nonicteric Neck: Supple, JVD not distended Respiratory: Clear to auscultation bilaterally, Normal air movement Cardiovascular: No edema, Regular rate/rhythm, Normal S1 S2 Gastrointestinal: Soft and benign, Non-distended, No tenderness Musculoskeletal: No swelling, No tenderness Integumentary: No rashes, No erythema Neurological: Normal speech, Normal strength at 5/5 x4 extr, Cranial nerves 3-12 intact, Other (No tremors.) Laboratory Data at Discharge: WBC 5.20 K/uL (4.3-10.9) 05/08/21 05:56 Hgb 13.3 g/dL (13.6-17.9) L 05/08/21 05:56 Hct 40.1 % (39.6-49.0) 05/08/21 05:56 Plt Count 171 K/uL (152-406) 05/08/21 05:56 Sodium 141 mmol/L (136-145) 05/08/21 05:56 Potassium 3.9 mmol/L (3.5-5.1) 05/08/21 05:56 BUN 10 mg/dL (7-18) 05/08/21 05:56 Creatinine 1.03 mg/dL (0.55-1.3) 05/08/21 05:56 Glucose 95 mg/dL (74-106) 05/08/21 05:56 Phosphorus 4.2 mg/dL (2.5-4.9) D 05/08/21 05:56 Magnesium 2.5 mg/dL (1.8-2.4) H 05/08/21 05:56 Total Bilirubin 0.3 mg/dL (0.2-1.0) 05/08/21 05:56 AST 115 U/L (15-37) H 05/08/21 05:56 ALT 142 U/L (12-78) H 05/08/21 05:56 Alkaline Phosphatase 72 U/L (45-117) 05/08/21 05:56 Triglycerides 169 mg/dL (<150) H 05/06/21 05:45 Cholesterol 164 mg/dL (<200) 05/06/21 05:45 HDL Cholesterol 67 mg/dL (40-60) H 05/06/21 05:45 Cholesterol/HDL Ratio 2.45 05/06/21 05:45 Home Medications: Amlodipine [Norvasc*] 5 mg PO DAILY #30 tab 05/08/21 Gabapentin 300 mg PO BEDTIME #30 capsule 05/08/21 Nicotine [Nicoderm*] 21 mg TD DAILY patch.td24 05/08/21 Thiamine HCl [Vitamin B-1*] 100 mg PO DAILY #30 tablet 05/08/21 chlordiazePOXIDE HCl [Librium*] 25 mg PO Q6HR cap 05/08/21 New Medications: Gabapentin 300 mg PO BEDTIME #30 capsule Amlodipine [Norvasc*] 5 mg PO DAILY #30 tab Thiamine HCl [Vitamin B-1*] 100 mg PO DAILY #30 tablet Diet: AHA Activity: Ad dom Followup: NONE,NONE [Primary Care Provider] - Time spent managing pt's care (in minutes): 37
[2021-05-08 12:09] VITALS: BP 142/80; TEMP 97.4
== END 2021-05-08 15:41 | disposition home or self-care (01) | DRG 897 ==
LOC: ER 15:26 → ERHOLD 18:24 → 2ND 21:16
PROVIDERS: ADMIT Internal Medicine; ATTEND Internal Medicine
DX: F10.231 Alcohol dependence with withdrawal delirium (principal); F10.251 Alcohol dependence with alcohol-induced psychotic disorder with hallucinations; E87.6 Hypokalemia; F17.200 Nicotine dependence, unspecified, uncomplicated; R03.0 Elevated blood-pressure reading, without diagnosis of hypertension; Z79.899 Other long term (current) drug therapy; Z20.822 Contact with and (suspected) exposure to COVID-19; Z23 Encounter for immunization
CPT/HCPCS: 36415; 80048; 80053; 80061; 80307; 80320; 83735; 84100; 84439; 84443; 85025; 90471; 90732; 93005; 94760; 96361; 96374; 99285; J0360; J1630; J1650; J2270; J2405; J3360; J3411; J7030; U0003